=== PATIENT | female | born 1950 | race Two or more races ===

== ENCOUNTER 2023-06-25 11:36 | Inpatient (IN) | payer OTHER ==
[2023-06-19 10:50] LABS: PH,URINE 5.5 (5.0-8.0); URINE APPEARANCE Clear; URINE BILIRRUBIN Negative (NEGATIVE); URINE BLOOD Negative; URINE COLOR Yellow; URINE GLUCOSE Negative (NEGATIVE); URINE LEUKOCYTE Negative; URINE NITRATE Negative; URINE PROTEIN Negative (NEGATIVE); URINE UROBILINOGEN 0.2 E.U./dl
[2023-06-19 10:54] LABS: URINE EPITHELIAL CELLS 4.3 uL (0.0-38.8); URINE RBC 12.9 uL (0.0-20.8); URINE WBC 3.5 uL (0.0-23.2)
[2023-06-19 10:55] LABS: HEMATOCRIT 35.4 % (36.0-45.00); MEAN CELL VOLUME 85.7 fL (80.00-100.00); MEAN CORPUSCULAR HEMOGLOBIN 29.2 pg (27.00-32.0); MEAN CORPUSCULAR HGB CONC 34.1 g/dl (32.0-36.0); PLATELET COUNT 346 K/uL (150-450); RED BLOOD COUNT 4.13 M/uL (4.00-6.00); RED CELL DISTRIBUTION WIDTH 14.9 % (11.5-14.5)
[2023-06-19 11:20] LABS: ALBUMIN 3.6 gm/dL (3.4-5.0); BILIRUBIN TOTAL 0.6 mg/dL (0.3-1.2); CALCIUM 9.4 mg/dL (8.5-10.1); CREATININE SERUM 0.73 mg/dL (0.55-1.02); GFR 78.37; GLOBULINA 3.1 G/DL (2.4-3.5); INR 1.04; PARTIAL THROMBOPLASTIN TIME 24.8 SECONDS (22.0-34.0); PROTHROMBIN TIME 10.9 SECONDS (9.0-11.5); TOTAL PROTEIN 6.7 gm/dL (6.4-8.2)
[~2023-06-25] VITALS: Ht 170.2 cm; Wt 101.6 kg
[~2023-06-25 11:36] MED LIST: AMLODIPINE BESYL5 MG PO; DIOVAN320 MG PO; ISOSORBIDE DINI30 MG PO; NORVASC5 MG PO; SPIRONOLACTONE25 MG PO; TORSEMIDE10 MG PO
[2023-06-25] MEDS ORDERED: CEFAZOLIN SODIUM 1,000 MG VIAL ONE (12:29)
[2023-06-25] MEDS ORDERED: DEXAMETHASONE SODIUM PHOSPHATE 4 MG/ML VIAL ONE (12:40)
[2023-06-25] MEDS ORDERED: PANTOPRAZOLE SODIUM 40 MG/VIAL VIAL ONE (12:41)
[2023-06-25] MEDS ORDERED: CEFAZOLIN SODIUM 1,000 MG in 0.9 % SODIUM CHLORIDE 50 ML IV ONE (14:00)
[2023-06-25] MEDS ORDERED: DEXAMETHASONE SODIUM PHOSPHATE 4 MG/ML VIAL IV ONE (14:15)
[2023-06-25] MEDS ORDERED: PANTOPRAZOLE SODIUM 40 MG/VIAL VIAL IV ONE (14:15)
[2023-06-25] MEDS ORDERED: ONDANSETRON HCL 2 MG/ML VIAL IV PRN (16:45)
[2023-06-25] MEDS ORDERED: ENALAPRILAT DIHYDRATE 1.25 MG/ML VIAL IV PRN (16:45)
[2023-06-25] MEDS ORDERED: TRAMADOL HCL 50 MG TABLET PO SCH (17:00)
[2023-06-25] MEDS ORDERED: ACETAMINOPHEN 500 MG GEL..CAP PO SCH (17:00)
[2023-06-25] MEDS ORDERED: PANTOPRAZOLE SODIUM 40 MG/VIAL VIAL IV PUSH SCH (21:00)
[2023-06-25] MEDS ORDERED: Calcium Carbonate 1 TAB TABLET PO SCH (21:00)
[2023-06-25] MEDS ORDERED: CALCITRIOL 0.5 MCG CAPSULE PO SCH (21:00)
[2023-06-26] MEDS ORDERED: CYCLOBENZAPRINE HCL 5 MG TABLET PO SCH (09:00)
[2023-06-26] MEDS ORDERED: LEVOTHYROXINE SODIUM 100 MCG TABLET PO SCH (09:00)
[2023-06-26] MEDS ORDERED: CARVEDILOL25 M1 (11:10)
[2023-06-26] MEDS ORDERED: POTASSIUM CITR15 MEQ (11:10)
[2023-06-26] MEDS ORDERED: GABAPENTIN600 MG (11:10)
[2023-06-26] MEDS ORDERED: QUETIAPINE FUM200 MG (11:11)
[2023-06-26] MEDS ORDERED: ROSUVASTATIN CA20 MG (11:11)
== END 2023-06-26 16:03 | disposition home or self-care (01) | DRG 627 ==
LOC: CIR.AMB 11:36 → SEC-K 18:00 → OB/GYN 18:00
PROVIDERS: ADMIT Otolaryngology; ATTEND Otolaryngology
PROC: 0GTM0ZZ Resection of Left Superior Parathyroid Gland, Open Approach (ICD-10-PCS; 2023-06-25)
PROC: 0GTK0ZZ Resection of Thyroid Gland, Open Approach (ICD-10-PCS; principal; 2023-06-25 07:00)
DX: C75.0 Malignant neoplasm of parathyroid gland (principal); E04.2 Nontoxic multinodular goiter; Z20.822 Contact with and (suspected) exposure to COVID-19